=== PATIENT | male | born 1945 | race Caucasian/White ===

== ENCOUNTER 2017-12-28 13:35 | Observation (INO) | payer MEDICARE, OTHER, MEDICAID, SELFPAY ==
[2017-12-28] VITALS (53 sets, daily range): BP systolic 142–198; BP diastolic 71–104; PULSE 71–97; RESP 13–40; TEMP 37–37.3; O2SAT 90–97
[2017-12-28 14:10] LABS: Abs Immature Grans 0.01 k/cumm (0.0-0.09); Absolute Basophil Count 0.02 k/cumm (0.0-0.2); Absolute Eosinophil Count 0.43 k/cumm (0.0-0.7); Absolute Lymphocyte Count 1.16 k/cumm (1.2-3.4); Absolute Monocyte Count 0.78 k/cumm (0.11-0.7); Absolute Neutrophil Count 5.41 k/cumm (1.2-6.7); Basophils % 0.3; Eosinophils % 5.5; HCT 38.8 % (40.0-50.0); HGB 12.6 g/dL (13.5-17.5); Immature Grans % 0.1; Lymphocytes % 14.9; Mean Corp. HGB Concentration 32.5 g/dL (32.0-36.0); Mean Corpuscular Hemoglobin 30.8 pg (27.0-33.0); Mean Corpuscular Volume 94.9 fL (80-95); Mean Platelet Volume 8.7 fL (8.0-11.0); Neutrophils % 69.2; Platelet Count 296 x1000/uL (130-400); RBC 4.09 m/cumm (4.50-6.00); RBC Distribution Width 13.3 % (11.8-14.1); White Blood Cell Count 7.81 k/cumm (4.4-10.8)
[2017-12-28 14:32] LABS: ALT 26 U/L (12-78); AST 17 U/L (15-37); Albumin 2.6 g/dL (3.4-5.0); Alkaline Phosphatase 74 U/L (46-116); Anion Gap 8.3 mmol/L (3-11); BUN 13 mg/dL (7-18); Bilirubin, Direct 0.23 mg/dL (0.00-0.20); Bilirubin, Total 0.8 mg/dL (0.2-1.0); CO2 28.7 mmol/L (21.0-32.0); Calcium 8.8 mg/dL (8.5-10.1); Chloride 99 mmol/L (98-107); Glucose 91 mg/dL (70-100); Magnesium 1.9 mg/dL (1.8-2.4); NT-proBNP 287 pg/mL; Potassium 4.3 mmol/L (3.5-5.1); Sodium 136 mmol/L (136-145); Total Protein 6.7 g/dL (6.4-8.2)
[2017-12-28 14:34] LABS: Troponin I < 0.02 ng/mL (0.00-0.06)
--- NOTE | 2017-12-28 15:12 | W.ED.GENAD ---
Discharge Plan Disposition Patient Disposition: [facility] INPATIENT Condition: Serious Discharge Details Chief Complaint: SOB Clinical Impression: Loculated pleural effusion, Shortness of breath, Hypoxia Reason For Visit: RANDAL Primary Care Provider: Essence Prater V ED Provider: Alexsander Mejia Home Meds and New Rx's Prescriptions: No Action albuterol sulfate [ProAir HFA] 8.5 GM HFA aerosol inhaler 1 - 2 puff Inhalation Q6H PRN RF: 0 terazosin 1 MG capsule 10 mg PO HS RF: 0 albuterol sulfate [Proventil HFA] 1 PUFF HFA aerosol inhaler 6.7 gm Inhalation PRN PRNRF: 0 prednisone 10 mg Tablet RF: 0 clindamycin HCl 300 mg Capsule 300 mg PO TID RF: 0 Duoneb 3 ml Inhalation PRN PRNRF: 0 Medical Decision Making 15:15 --72-year-old male with history of COPD and atrial fibrillation, here with shortness of breath over the past 2 weeks, recent left-sided chest pain. On clindamycin. Consider ACS, ECG reviewed and interpreted by me: A. fib, 76 bpm, normal axis, flattening of T waves laterally V4 to V6, nondiagnostic. Plan to check troponin. Consider pulmonary embolism. Plan to CT chest. 17:40 --CT chest interpreted by radiology: Evaluation for pulmonary embolism is limited secondary to timing of the examination and quantum mottle. Examination is technically nondiagnostic as a contrast of the main pulmonary artery measures less than 200 Hounsfield units. No definite main pulmonary artery embolism is seen. There is volume loss on the left with leftward mediastinal shift. A left-sided effusion is identified with areas of lobulation suggestive of loculation. There are associated opacities most consistent with atelectasis collapse. Superimposed pathology or infection would be difficult to exclude. Me a small portion of the lung is aerated superiorly. Aneurysmal dilatation of the ascending thoracic aorta. Large hiatal hernia. Lymph node prominence paratracheal. Plan to repeat CT given insufficient initial study. Patient provides informed consent to repeat. 20:00 --repeat CT of the chest interpreted by radiology: Left lung atelectasis with semi-loculated left pleural effusion and left thoracic volume loss unchanged from prior exam. Thoracic aorta unremarkable. No definite evidence of central or large pulmonary emboli. Will consult surgery. 20:05 -- Spoke with Dr. Lang who recommends admission to hospitalist for IV abx, possible VATs procedure. Will give levaquin. Will admit to Dr. Ma. HPI General Mode of arrival: EMS. Date/Time Provider Initiated Documentation: 12/28/17 13:56. Limitations to Documentation: no limitations. Information obtained by: patient. HPI Narrative: 72-year-old male with multiple medical problems including history of atrial fibrillation, COPD, hypertension, presents with chief complaint of shortness of breath. Patient notes that symptoms have persisted over the past 2 weeks. Symptoms are moderate to severe. No modifiers. Patient notes he was seen by his primary care physician Dr. Dumont in on Wednesday and was started on prednisone and clindamycin. Symptoms have persisted. He also notes associated dry cough. He is also experienced some left-sided deep chest pain today. Related Data Home Medications Medication Instructions Recorded Confirmed albuterol sulfate [Proventil Hfa] 6.7 gm INHALATION PRN PRN 10/16/12 12/28/17 terazosin 10 mg PO HS 10/16/12 12/28/17 albuterol sulfate [Proair Hfa] 1 - 2 puff INHALATION Q6H PRN 01/01/14 inhaler Duoneb 3 ml INHALATION PRN PRN 12/28/17 clindamycin HCl 300 mg PO TID 12/28/17 12/28/17 prednisone 12/28/17 Allergies Allergy/AdvReac Type Severity Reaction Status Date / Time Penicillins Allergy Mild Skin Rash Unverified 12/28/17 13:53 aspirin Allergy Unverified 12/28/17 13:53 naproxen [From Naprosyn] Allergy Unverified 12/28/17 13:53 General Stated Complaint: SOB ELIZABETH: 2 Review of Systems Review of Systems All systems reviewed & are unremarkable except as noted in HPI and below Cardiovascular Reports chest pain, Denies syncope, Denies edema and Reports dyspnea Respiratory Reports cough and Reports dyspnea Neurologic Denies syncope Hematologic/Lymphatic Comments: hands and distal LE swelling mild PFSH Medical History COPD (chronic obstructive pulmonary disease) (Chronic) Social History Smoking/Tobacco Use Status: Former Tobacco Use Exam Const General: cooperative and well developed Orientation: alert and awake Limitations: mental status not altered HENTX Head: normal to inspection and normocephalic Mouth: moist mucous membranes Throat: posterior oropharynx normal, uvula midline, posterior oropharynx abnormal and no uvular edema Eyes General: appearance normal, both eyes and all related structures Conjunctivae: conjunctivae normal EOM: EOM intact bilaterally Neck Neck: trachea midline, supple and no lymphadenopathy noted Resp Effort & Inspection: no grunting, no pursed lip breathing, respiratory distress (tachypnea, seems winded with speaking), no tripod positioning, no use of accessory muscles and No prolonged expiratory phase Auscultation: clear to auscultation bilaterally Cardio Jugular venous pressure: no JVD Rate: regular rate Rhythm: regular rhythm Heart Sounds: S1 normal, S2 normal, no gallops, no murmurs and no rubs GI Palpation: soft and nontender Skin General skin exam: no rashes or lesions noted and dry skin Other: warm Neuro General: alert, awake and oriented x3 Extrem General: no calf tenderness Psych Appearance: grossly normal Affect: normal affect Course Vital Signs Temperature 37.0 C 12/28/17 13:29 Pulse 76 12/28/17 13:29 Respiratory Rate 35 H 12/28/17 13:29 Pulse Oximetry 94 L 12/28/17 13:29 Temperature 37.0 C 12/28/17 13:29 Temperature Source Skin 12/28/17 13:29 Pulse 76 12/28/17 13:29 Respiratory Rate 20 12/28/17 13:54 Respiratory Effort Short of Breath 12/28/17 13:54 Respiratory Depth Normal 12/28/17 13:54 Respiratory Pattern Normal 12/28/17 13:54 Pulse Oximetry 94 L 12/28/17 13:29 Oxygen Delivery Method Room Air 12/28/17 13:29 Oxygen Flow Rate 0 12/28/17 13:29 Pain Level 4 12/28/17 13:29 Lab/Test Results Lab/Test Results: Laboratory Tests Range/Units 12/28/17 12/28/17 12/28/17 13:50 13:50 13:50 WBC (4.4-10.8) k/cumm 7.81 RBC (4.50-6.00) m/cumm 4.09 L Hgb (13.5-17.5) g/dL 12.6 L Hct (40.0-50.0) % 38.8 L MCV (80-95) fL 94.9 MCH (27.0-33.0) pg 30.8 MCHC (32.0-36.0) g/dL 32.5 RDW (11.8-14.1) % 13.3 Plt Count (130-400) x1000/uL 296 MPV (8.0-11.0) fL 8.7 Immature Gran % 0.1 Neutrophils % 69.2 Lymphocytes % 14.9 Monocytes % 10.0 Eosinophils % 5.5 Basophils % 0.3 Absolute Neutrophils (1.2-6.7) k/cumm 5.41 Absolute Lymphocytes (1.2-3.4) k/cumm 1.16 L Absolute Monocytes (0.11-0.7) k/cumm 0.78 H Absolute Eosinophils (0.0-0.7) k/cumm 0.43 Absolute Basophils (0.0-0.2) k/cumm 0.02 APTT (21.0-31.4) sec 31.0 Sodium (136-145) mmol/L 136 Potassium (3.5-5.1) mmol/L 4.3 Chloride (98-107) mmol/L 99 Carbon Dioxide (21.0-32.0) mmol/L 28.7 Anion Gap (3-11) mmol/L 8.3 BUN (7-18) mg/dL 13 Creatinine (0.70-1.30) mg/dL 0.40 L Estimated GFR/1.73 m2 (mL/min/1.73m2) >= 60.00 Glucose (70-100) mg/dL 91 Calcium (8.5-10.1) mg/dL 8.8 Magnesium (1.8-2.4) mg/dL 1.9 Total Bilirubin (0.2-1.0) mg/dL 0.8 Conjugated Bilirubin (0.00-0.20) mg/dL 0.23 H AST (15-37) U/L 17 ALT (12-78) U/L 26 Alkaline Phosphatase (46-116) U/L 74 Troponin I (0.00-0.06) ng/mL < 0.02 NT-Pro-B Natriuret Pep ( - 299) pg/mL 287 Total Protein (6.4-8.2) g/dL 6.7 Albumin (3.4-5.0) g/dL 2.6 L
[2017-12-28] MEDS: Omnipaque 350 MG/ML 100 ML BTL IJ ×2 (16:20→18:01)
--- NOTE | 2017-12-28 16:21 | DI.CT_ITS ---
SYMPTOM/DIAGNOSIS: SOB, INADEQUATE INITIAL STUDY PE CHEST CT: CT angiography was performed with multi slice acquisition and multi planar and 3D reconstruction. The exam is limited by patient's body habitus and poor pulmonary artery opacification. No large, central pulmonary emboli are identified. The heart is enlarged. There is a loculated appearing left pleural effusion and adjacent atelectasis. There is no evidence of aortic dissection although there is motion at the aortic root. The right lung appears clear. There are mildly enlarged mediastinal lymph nodes which may be reactive. There is a large hiatal hernia. The liver, spleen, gallbladder, pancreas and adrenals as well as upper portions of the kidneys are unremarkable. IMPRESSION: Limited exam due to motion, patient body habitus and suboptimal opacification of the pulmonary arteries. No central pulmonary emboli are seen. There is a moderate to large, partially loculated left pleural effusion and significant atelectasis. There is no gross evidence of a mass. PE CHEST CT: CT angiography was performed with multi slice acquisition and multi planar and 3D reconstruction. Comparison is made with the exam performed earlier the same day. The pulmonary arteries are better opacified when compared with the previous exam however there is still some patient motion and quantum model related to the patient's body habitus. There are no large pulmonary emboli. Again noted is a moderate to large, partially loculated left pleural effusion and adjacent atelectasis as well as some midline shift towards the left. The heart is enlarged. There are mildly enlarged mediastinal lymph nodes. The right lung remains clear. There is no evidence of aortic dissection. A large hiatal hernia is again noted. IMPRESSION: No evidence of central pulmonary emboli. Loculated left pleural effusion and significant left basilar atelectasis.
--- NOTE | 2017-12-28 16:54 | DI.VRAD_ITS ---
EXAM: CT Angiography Chest With Intravenous Contrast EXAM DATE/TIME: 12/28/2017 2:53 PM CLINICAL HISTORY: 72 years old, male; Signs and symptoms; Shortness of breath; Patient HX: SOB TECHNIQUE: Axial computed tomographic angiography images of the chest with intravenous contrast using CT angiography protocol. All CT scans at this facility use at least one of these dose optimization techniques: automated exposure control; mA and/or kV adjustment per patient size (includes targeted exams where dose is matched to clinical indication); or iterative reconstruction. Coronal and sagittal reformatted images were created and reviewed. MIP reconstructed images were created and reviewed. CONTRAST: 100 ml of omni 350 administered intravenously. COMPARISON: CR ABD FLAT UPRIGHT PA CHEST 02/25/2012 1:54 PM FINDINGS: Pulmonary arteries: Evaluation for pulmonary embolism is limited secondary to timing of the examination and quantum mottle. The examination is technically nondiagnostic as the contrast in the main pulmonary artery measures less than 200 Hounsfield units. No definite main pulmonary artery embolism is seen. Aorta: Evaluation of the proximal aorta is limited secondary to motion. The aorta measures 4.0 cm, aneurysmal. Lungs: There is volume loss on the left with leftward mediastinal shift. A left-sided effusion is identified with areas of lobulation suggestive of loculation. There are associated opacities most consistent with atelectasis/collapse. Superimposed pathology or infection would be difficult to exclude. Only a small portion of lung is aerated superiorly. Pleural space: There is a small pericardial effusion. Heart: Coronary artery calcifications are seen. Mediastinum: There is a large hiatal hernia. Gas is noted in the esophagus which can be seen with reflux. Bones/joints: Scoliosis. Skeletal degenerative changes. Scattered gas is noted in the disc spaces of the spine. In the absence of concern for infection, this is most likely secondary to vacuum phenomenon. Soft tissues: Unremarkable. Lymph nodes: There is a prominent paratracheal lymph node on series 6 image 18 measuring 1.2 cm on short axis, enlarged. IMPRESSION: 1. Evaluation for pulmonary embolism is limited secondary to timing of the examination and quantum mottle. The examination is technically nondiagnostic as the contrast in the main pulmonary artery measures less than 200 Hounsfield units. No definite main pulmonary artery embolism is seen. 2. There is volume loss on the left with leftward mediastinal shift. A left-sided effusion is identified with areas of lobulation suggestive of loculation. There are associated opacities most consistent with atelectasis/collapse. Superimposed pathology or infection would be difficult to exclude. Only a small portion of lung is aerated superiorly. 3. Aneurysmal dilation of the ascending thoracic aorta. 4. Large hiatal hernia. 5. Lymph node prominence/enlargement as described. Other findings as above. Dictated and Authenticated by: Amanda Joaquin MD. Ordering:ASPEN VALLEJO MD
[2017-12-28] MEDS: LEVOFLOXACIN 750 MG/150 ML BAG 150 MG IVPB (20:20)
--- NOTE | 2017-12-28 20:50 | W.PM.HP.N ---
Date of service: 12/28/17 Time of Service: 20:50 Assessment and Plan (1) Pleural effusion: Current visit: Yes Status: Acute Clearly the patient's symptoms are secondary to this large pleural effusion etiology unclear, rule out infection, inflammatory, malignant as most likely in the differential. Patient has received a dose of Levaquin here in the emergency room and I will continue that for now but it is clear he will need both a diagnostic and therapeutic thoracentesis. Case has been discussed with surgeon and they will be seeing the patient in the morning. We will continue usual medications as is in the meantime. I reviewed advanced directives with the patient and he wishes to be full code History of Present Illness Chief Complaint: sob Narrative: Patient is a 72-year-old male with history of COPD who comes in with approximately 2 weeks of left-sided pleuritic chest pain, shortness of breath and a degree of productive cough. There is been no fever or chills. His local doctor started him on clindamycin approximately 5 days ago. This has not had no effect and he comes to the emergency room with progressive and persistent symptoms. In the emergency room evaluation of note for massive left sided, loculated pleural effusion. He was admitted for further evaluation and management. Past medical history: COPD, atrial fibrillation (note that he says he is not on any anticoagulation or aspirin), coronary artery disease, GERD, oral pharyngeal dysphasia. Allergies to penicillin and NSAIDs. Medications: As needed albuterol clindamycin 300 3 times daily terazosin 10 mg at bedtime. Physical exam: Blood pressure 190/90 pulse approximately 90 respirations 19 afebrile O2 sat 92-93% on room air. HEENT unremarkable. Neck is supple. Lungs show dullness throughout on the left and diminished breath sound along with egophony. Heart is somewhat distant but irregularly irregular. Abdomen is soft nontender. and rectal exams are deferred neurological patient is alert and oriented and moves all 4 extremities. Laboratory: White count is 7.8 hematocrit 38 platelets 296 sodium 136 potassium 4.3 chloride 99 bicarb 28 BUN 13 creatinine 0.[address] shows massive left-sided pleural effusion, loculated Review of Systems Review of Systems All systems reviewed & are unremarkable except as noted in HPI and below PFSH Medical History COPD (chronic obstructive pulmonary disease) (Chronic) Social History Smoking/Tobacco Use Status: Former Tobacco Use Meds Home Medications Medication Instructions Recorded Confirmed Type albuterol sulfate [Proventil Hfa] 6.7 gm INHALATION PRN PRN 10/16/12 12/28/17 History terazosin 10 mg PO HS 10/16/12 12/28/17 History albuterol sulfate [Proair Hfa] 1 - 2 puff INHALATION Q6H PRN 01/01/14 History inhaler Duoneb 3 ml INHALATION PRN PRN 12/28/17 History clindamycin HCl 300 mg PO TID 12/28/17 12/28/17 History prednisone 12/28/17 History Allergies Allergy/AdvReac Type Severity Reaction Status Date / Time Penicillins Allergy Mild Skin Rash Unverified 12/28/17 13:53 aspirin Allergy Unverified 12/28/17 13:53 naproxen [From Naprosyn] Allergy Unverified 12/28/17 13:53 Exam Narrative Exam Narrative: See history of present illness Results Labs : 12/28/17 13:50 12/28/17 13:50 Laboratory Results - last 24 hr 12/28/17 12/28/17 12/28/17 13:50 13:50 13:50 WBC 7.81 RBC 4.09 L Hgb 12.6 L Hct 38.8 L MCV 94.9 MCH 30.8 MCHC 32.5 RDW 13.3 Plt Count 296 MPV 8.7 Immature Gran % 0.1 Neutrophils % 69.2 Lymphocytes % 14.9 Monocytes % 10.0 Eosinophils % 5.5 Basophils % 0.3 Absolute Neutrophils 5.41 Absolute Lymphocytes 1.16 L Absolute Monocytes 0.78 H Absolute Eosinophils 0.43 Absolute Basophils 0.02 APTT 31.0 Sodium 136 Potassium 4.3 Chloride 99 Carbon Dioxide 28.7 Anion Gap 8.3 BUN 13 Creatinine 0.40 L Estimated GFR/1.73 m2 >= 60.00 Glucose 91 Calcium 8.8 Magnesium 1.9 Total Bilirubin 0.8 Conjugated Bilirubin 0.23 H AST 17 ALT 26 Alkaline Phosphatase 74 Troponin I < 0.02 NT-Pro-B Natriuret Pep 287 Total Protein 6.7 Albumin 2.6 L Last Vital Signs Temp 37.0 C 12/28/17 13:29 Pulse 81 12/28/17 19:46 Resp 19 12/28/17 19:50 BP 198/89 H 12/28/17 19:46 Pulse Ox 92 L 12/28/17 19:50
[2017-12-28] MEDS: Zolpidem 5 MG TAB PO (22:18)
[2017-12-28 22:21] LABS: Bilirubin Negative (Negative); Blood Negative (Negative); Clarity Clear; Glucose Negative (Negative); Ketones >=160 mg/dL (Negative); Leukocyte Esterase Negative (Negative); Nitrite Negative (Negative); Urobilinogen 0.2 EU/dL (Up TO 0.2)
[2017-12-29] VITALS (29 sets, daily range): BP systolic 111–178; BP diastolic 74–145; PULSE 78–118; RESP 18–34; TEMP 36.9–37.3; O2SAT 90–96
[2017-12-29 08:14] LABS: Abs Immature Grans 0.02 k/cumm (0.0-0.09); Absolute Basophil Count 0.02 k/cumm (0.0-0.2); Absolute Eosinophil Count 0.16 k/cumm (0.0-0.7); Absolute Lymphocyte Count 0.88 k/cumm (1.2-3.4); Absolute Monocyte Count 0.92 k/cumm (0.11-0.7); Basophils % 0.2; Eosinophils % 1.7; HCT 38.8 % (40.0-50.0); HGB 12.8 g/dL (13.5-17.5); Immature Grans % 0.2; Lymphocytes % 9.3; Mean Corpuscular Hemoglobin 30.9 pg (27.0-33.0); Mean Corpuscular Volume 93.7 fL (80-95); Mean Platelet Volume 8.6 fL (8.0-11.0); Monocytes % 9.7; Neutrophils % 78.9; Platelet Count 300 x1000/uL (130-400); RBC 4.14 m/cumm (4.50-6.00); RBC Distribution Width 13.2 % (11.8-14.1)
[2017-12-29 08:21] LABS: Magnesium 1.9 mg/dL (1.8-2.4)
[2017-12-29 08:24] LABS: Anion Gap 9.5 mmol/L (3-11); BUN 11 mg/dL (7-18); C-Reactive Protein 16.67 mg/dL (0.0-0.3); CO2 26.5 mmol/L (21.0-32.0); CREATININE 0.34 mg/dL (0.70-1.30); Calcium 8.7 mg/dL (8.5-10.1); Chloride 99 mmol/L (98-107); Glucose 111 mg/dL (70-100); LDH 123 U/L (85-227); Potassium 4.2 mmol/L (3.5-5.1); Sodium 135 mmol/L (136-145)
[2017-12-29 08:29] LABS: INR 1.3 (1.0-3.5); Prothrombin Time 12.2 sec (9.3-10.8)
[2017-12-29 08:34] LABS: ALT 21 U/L (12-78); AST 15 U/L (15-37); Albumin 2.4 g/dL (3.4-5.0); Alkaline Phosphatase 72 U/L (46-116); Bilirubin, Direct 0.28 mg/dL (0.00-0.20); Total Protein 6.5 g/dL (6.4-8.2)
[2017-12-29] MEDS: Acetaminophen 325 MG TAB 650 MG PO (08:45)
--- NOTE | 2017-12-29 10:24 | PHARADMIT ---
Admission Pharmacy Clinical Review PLEURAL EFFUSION Code Status Full Code Current Weight Wgt- 142.9 kg Renally Cleared and Narrow Therapeutic Index Meds CrCl~ 84 mL/min Meds-OK QTc Value / Action Taken NA BP Control, Fever BP- 165/84 Tmax- 37.3C Electrolytes reviewed Na- 135 K+4.2 Mag-1.9 DVT Prophylaxis None Opiate Usage / Scheduled Bowel Regimen Ordered No No Plt/SCr for Heparin / Enoxaparin Plts-300 SCr-0.34 INR for Warfarin INR-1.3 H/H stable, WBC/Bands H&H- 12.8/38.8 WBC- 9.50 Antibiotic appropriateness Levaquin Cultures and Sensitivities nione Surgical ABX d/c within 24 hr na DM control / Insulin Dosing BG- 111 Heart Failure (Check EF%) (ALTAF's, B-Block, Diuretics) Terazosin IV to PO Switch no Home Meds Reviewed Yes Home Meds Not Ordered Albuterol HFA, Cleocin, Prednisone Comments
--- NOTE | 2017-12-29 11:06 | PDOC.CMIN ---
Care Management Initial Assess REASON FOR HOSPITALIZATION:: Pleural Effusion PAST MEDICAL HISTORY/PAST SURGICAL HISTORY:: COPD, atrial fibrillation (note that he says he is not on any anticoagulation or aspirin), coronary artery disease, GERD, oral pharyngeal dysphasia. Allergies to penicillin and NSAIDs. PREVIOUS FUNCTIONAL STATUS/SOCIAL/FAMILY SUPPORTS:: Jonathan resides in [facility] with his and primary caregiver; Veronique. He reports being unable to leave the home without EMS transport which he utilizes for dentist and medical appointments. The couple has two adult children; a son and daughter. CURRENT FUNCTIONAL STATUS:: Jonathan is lying in bed when CM meets with him. He shares concerns around needing to see a body rolling machine tender, but is pleasant in interaction and forthcoming with information. ADVANCE DIRECTIVES:: None on file at [facility] Has patient been provided with information about the portal?: No Did the patient sign up for the portal?: No INSURANCE COVERAGE / FINANCIAL ISSUES:: Medicare CURRENT HOME/COMMUNITY SERVICES/EQUIPMENT:: [employer], [employer], LTC Medicaid: [facility], through [employer]: Viri Abreu. PRIMARY CARE PHYSICIAN:: Essence Prater POTENTIAL DISCHARGE NEEDS:: Possible tranfer coordination. PATIENT/FAMILY EDUCATION NEEDS:: Review of instructions, limitations to care, discharge recommendations. ANTICIPATED BARRIERS TO DISCHARGE:: Bed availability at tertiary facility. TRANSPORTATION:: EMS PLAN:: Jonathan will transfer to tertiary facility due to needing VAT per MD. He will transport via EMS.
--- NOTE | 2017-12-29 11:25 | INITIAL_ITS ---
Care Management Initial Assess REASON FOR HOSPITALIZATION:: Pleural Effusion PAST MEDICAL HISTORY/PAST SURGICAL HISTORY:: COPD, atrial fibrillation (note that he says he is not on any anticoagulation or aspirin), coronary artery disease, GERD, oral pharyngeal dysphasia. Allergies to penicillin and NSAIDs. PREVIOUS FUNCTIONAL STATUS/SOCIAL/FAMILY SUPPORTS:: Jonathan resides in [facility] with his and primary caregiver; Veronique. He reports being unable to leave the home without EMS transport which he utilizes for dentist and medical appointments. The couple has two adult children; a son and daughter. CURRENT FUNCTIONAL STATUS:: Jonathan is lying in bed when CM meets with him. He shares concerns around needing to see a nps, but is pleasant in interaction and forthcoming with information. ADVANCE DIRECTIVES:: None on file at [facility] Has patient been provided with information about the portal?: No Did the patient sign up for the portal?: No INSURANCE COVERAGE / FINANCIAL ISSUES:: Medicare CURRENT HOME/COMMUNITY SERVICES/EQUIPMENT:: [employer], [employer], LTC Medicaid: MERGED WITH [facility] , through [employer]: Viri Abreu. PRIMARY CARE PHYSICIAN:: Essence Prater POTENTIAL DISCHARGE NEEDS:: Possible tranfer coordination. PATIENT/FAMILY EDUCATION NEEDS:: Review of instructions, limitations to care, discharge recommendations. ANTICIPATED BARRIERS TO DISCHARGE:: Bed availability at tertiary facility. TRANSPORTATION:: EMS PLAN:: Jonathan will transfer to tertiary facility due to needing VAT per MD. He will transport via EMS.
--- NOTE | 2017-12-29 13:48 | NUR.NOTE ---
Pt transferred to ICU at 1330 for higher level of care until transfer for VATS procedure. Nursing Note:
--- NOTE | 2017-12-29 15:41 | W.PM.DS.N ---
Date of service: 12/29/17 Time of Service: 15:42 DS: Diagnosis Discharge Diagnosis (1) Pleural effusion: Status: Acute Asessment and Plan: Large, left, loculated, etiology unknown (2) Mediastinal shift: Status: Acute (3) COPD (chronic obstructive pulmonary disease): Status: Chronic (4) Paroxysmal A-fib: Status: Chronic Asessment and Plan: not on anticoagulation (5) Pleuritic chest pain: Status: Acute (6) HOWARD (obstructive sleep apnea): Status: Chronic (7) Obesity: Status: Chronic (8) Oropharyngeal dysphagia: Status: Chronic (9) GERD (gastroesophageal reflux disease): Status: Chronic (10) Hiatal hernia: Status: Chronic Discharge Plan Disposition Patient Disposition: HOSPITAL, NON-SPECIFIC Condition: Serious Discharge Details Reason For Visit: PLEURAL EFFUSION Admit Date/Time: 12/28/17 21:03 Admit Provider: Finn Ma Attending Provider: Finn Ma Primary Care Provider: Essence Prater V Hospital Course Hospital Course: Mr Busch is a 73 year old male with PMHx of paroxysmal Atrial fibrillation (not on anticoagulation), COPD (not oxygen dependent), GERD, Obesity who presented to [facility] ED on 12/28/17 complaining of shortness of breath and pleuritic chest pain. His workup (CTA of the chest) revealed that he had a moderate to large partially loculated left pleural effusion, significant atelectasis, as well as a mediastinal shift toward the left. There was also a large hiatal hernia noted. General surgery was consulted and feels that patient requires a thoracic surgery approach to best solve this patient's problem - specifically, VATS, which is unavailable at [facility]. There are no beds available at this time at either [facility] or [facility] We reached out to [facility] in [place], [place], where Dr Jimenez has agreed to accept the patient with thoracic surgery consulting, and Dr Berger of thoracic surgery is aware of the patient. The patient is in agreement with transfer. He is requiring 2 L of oxygen, his heart rate has been mostly controlled. He is hemodynamically stable for the transfer at this time. Home Meds and New Rx's Prescriptions: New acetaminophen [Tylenol] 325 mg Tablet 650 mg PO Q4H PRN PRNQty: 0 RF: 0 levofloxacin in D5W 500 mg/100 mL piggyback 500 mg IV Q24H Qty: 100 RF: 0 Continue albuterol sulfate [ProAir HFA] 8.5 GM HFA aerosol inhaler 1 - 2 puff Inhalation Q6H PRN RF: 0 terazosin 1 MG capsule 10 mg PO HS RF: 0 albuterol sulfate [Proventil HFA] 1 PUFF HFA aerosol inhaler 6.7 gm Inhalation PRN PRNRF: 0 prednisone 10 mg Tablet RF: 0 Duoneb 3 ml Inhalation PRN PRNRF: 0 Discontinued clindamycin HCl 300 mg Capsule 300 mg PO TID RF: 0 Discharge Instructions Instructions: Pleural Effusion (DC), Video Assisted Thoracoscopic Surgery (DC) Additional Instructions: Return to the hospital with any fever, bleeding chest pain, shortness of breath. Referrals: Essence Prater MD [Primary Care Provider] - Activity:: OOB to chair Equipment/Supplies:: 2L/min for ambulance ride Diet:: Low Sodium Discharge Orders Discharge Orders: Discharge Order (Routine); Ordered 12/29/17 Ordered By: Elaine Sykes Exam Narrative Exam Narrative: General: Very pleasant Obese male, mildly tachypneic Neurological: A&Ox3, no focal deficits Psychiatric: appropriate speech pattern/content Skin: intact HEENT: EOMI, MMM, no JVD Cardiovascular: Irregularly irregular rhythm, no murmurs Lungs: Nearly no breath sounds auscultated on the L. Diminished aeration on R. Gastrointestinal: Obese abdomen, nontender, soft. Extremities: No edema/clubbing/cyanosis BLE's. DS: Data Vitals/I&O Vitals and I&O: Vital Signs Temperature 37.3 C 12/29/17 13:52 Temperature Source Temporal Artery Scan 12/29/17 13:52 Pulse 95 H 12/29/17 14:03 Pulse Rhythm Irregular 12/29/17 09:43 Pulse 87 12/29/17 14:03 Respiratory Rate 24 12/29/17 14:03 Respiratory Effort Labored 12/29/17 13:52 Respiratory Depth Shallow 12/29/17 09:43 Respiratory Pattern Tachypnea 12/29/17 13:52 Blood Pressure 159/97 H 12/29/17 14:03 Blood Pressure Mean 113 12/29/17 14:03 Pulse Oximetry 95 12/29/17 14:03 Oxygen Delivery Method Nasal Cannula 12/29/17 13:52 Oxygen Flow Rate 2 12/29/17 13:52 Fraction of Inspired Oxygen (FIO2) 0 12/29/17 07:15 Pain Level 6 12/29/17 13:52 Intake & Output 12/28/17 12/29/17 12/29/17 23:59 11:59 23:59 Intake Total 150 / 150 670 / 670 Output Total 300 / 300 Balance 150 / 150 370 / 370 Weight 142.882 kg 149.3 kg Intake: IV 150 / 150 Oral 670 / 670 Output: Urine 300 / 300 Other: Urine Color Yellow Urine Appearance Clear Clear Urine Odor Strong Voiding Methods Urinal Completed studies during hospitalization [Text1]: CTA chest 12/28/17: Comparison is made with the exam performed earlier the same day. The pulmonary arteries are better opacified when compared with the previous exam however there is still some patient motion and quantum model related to the patient's body habitus. There are no large pulmonary emboli. Again noted is a moderate to large, partially loculated left pleural effusion and adjacent atelectasis as well as some midline shift towards the left. The heart is enlarged. There are mildly enlarged mediastinal lymph nodes. The right lung remains clear. There is no evidence of aortic dissection. A large hiatal hernia is again noted. IMPRESSION: No evidence of central pulmonary emboli. Loculated left pleural effusion and significant left basilar atelectasis. Labs on day of discharge: Labs from last 24 hours 12/29/17 12/29/17 12/29/17 08:00 08:00 08:00 WBC 9.50 RBC 4.14 L Hgb 12.8 L Hct 38.8 L MCV 93.7 MCH 30.9 MCHC 33.0 RDW 13.2 Plt Count 300 MPV 8.6 Immature Gran % 0.2 Neutrophils % 78.9 Lymphocytes % 9.3 Monocytes % 9.7 Eosinophils % 1.7 Basophils % 0.2 Absolute Neutrophils 7.50 H Absolute Lymphocytes 0.88 L Absolute Monocytes 0.92 H Absolute Eosinophils 0.16 Absolute Basophils 0.02 PT 12.2 H INR 1.3 Sodium Potassium Chloride Carbon Dioxide Anion Gap BUN Creatinine Estimated GFR/1.73 m2 Glucose Calcium Magnesium Total Bilirubin 1.0 Conjugated Bilirubin 0.28 H AST 15 ALT 21 Alkaline Phosphatase 72 Lactate Dehydrogenase C-Reactive Protein Total Protein 6.5 Albumin 2.4 L Urine Color Urine Clarity Urine pH Ur Specific [place] Urine Protein Urine Ketones Urine Blood Urine Nitrite Urine Bilirubin Urine Urobilinogen Ur Leukocyte Esterase Urine Glucose 12/29/17 12/29/17 12/28/17 08:00 07:45 22:05 WBC RBC Hgb Hct MCV MCH MCHC RDW Plt Count MPV Immature Gran % Neutrophils % Lymphocytes % Monocytes % Eosinophils % Basophils % Absolute Neutrophils Absolute Lymphocytes Absolute Monocytes Absolute Eosinophils Absolute Basophils PT INR Sodium 135 L Potassium 4.2 Chloride 99 Carbon Dioxide 26.5 Anion Gap 9.5 BUN 11 Creatinine 0.34 L Estimated GFR/1.73 m2 >= 60.00 Glucose 111 H Calcium 8.7 Magnesium 1.9 Total Bilirubin Conjugated Bilirubin AST ALT Alkaline Phosphatase Lactate Dehydrogenase 123 C-Reactive Protein 16.67 H Total Protein Albumin Urine Color Yellow Urine Clarity Clear Urine pH 6.0 Ur Specific [place] 1.010 Urine Protein Negative Urine Ketones >=160 Urine Blood Negative Urine Nitrite Negative Urine Bilirubin Negative Urine Urobilinogen 0.2 Ur Leukocyte Esterase Negative Urine Glucose Negative 12/28/17 12/28/17 22:02 14:31 WBC RBC Hgb Hct MCV MCH MCHC RDW Plt Count MPV Immature Gran % Neutrophils % Lymphocytes % Monocytes % Eosinophils % Basophils % Absolute Neutrophils Absolute Lymphocytes Absolute Monocytes Absolute Eosinophils Absolute Basophils PT INR Sodium Potassium Chloride Carbon Dioxide Anion Gap BUN Creatinine Estimated GFR/1.73 m2 Glucose Calcium Magnesium Total Bilirubin Conjugated Bilirubin AST ALT Alkaline Phosphatase Lactate Dehydrogenase C-Reactive Protein Total Protein Albumin Urine Color Pending Cancelled Urine Clarity Pending Cancelled Urine pH Pending Cancelled Ur Specific [place] Pending Cancelled Urine Protein Pending Cancelled Urine Ketones Pending Cancelled Urine Blood Pending Cancelled Urine Nitrite Pending Cancelled Urine Bilirubin Pending Cancelled Urine Urobilinogen Pending Cancelled Ur Leukocyte Esterase Pending Cancelled Urine Glucose Pending Cancelled
--- NOTE | 2017-12-29 15:47 | DSE_ITS ---
Date of service: 12/29/17 Time of Service: 15:42 DS: Diagnosis Discharge Diagnosis (1) Pleural effusion: Status: Acute Asessment and Plan: Large, left, loculated, etiology unknown (2) Mediastinal shift: Status: Acute (3) COPD (chronic obstructive pulmonary disease): Status: Chronic (4) Paroxysmal A-fib: Status: Chronic Asessment and Plan: not on anticoagulation (5) Pleuritic chest pain: Status: Acute (6) HOWARD (obstructive sleep apnea): Status: Chronic (7) Obesity: Status: Chronic (8) Oropharyngeal dysphagia: Status: Chronic (9) GERD (gastroesophageal reflux disease): Status: Chronic (10) Hiatal hernia: Status: Chronic Discharge Plan Disposition Patient Disposition: HOSPITAL, NON-SPECIFIC Condition: Serious Discharge Details Reason For Visit: PLEURAL EFFUSION Admit Date/Time: 12/28/17 21:03 Admit Provider: Finn Ma Attending Provider: Finn Ma Primary Care Provider: Essence Prater V Hospital Course Hospital Course: Mr Busch is a 73 year old male with PMHx of paroxysmal Atrial fibrillation ( not on anticoagulation), COPD (not oxygen dependent), GERD, Obesity who presented to [facility] ED on 12/28/17 complaining of shortness of breath and pleuritic chest pain. His workup (CTA of the chest) revealed that he had a moderate to large partially loculated left pleural effusion, significant atelectasis, as well as a mediastinal shift toward the left. There was also a large hiatal hernia noted. General surgery was consulted and feels that patient requires a thoracic surgery approach to best solve this patient's problem - specifically, VATS, which is unavailable at [facility]. There are no beds available at this time at either [facility] or [facility]. We reached out to [facility] in [place], [place], where Dr Jimenez has agreed to accept the patient with thoracic surgery consulting, and Dr Berger of thoracic surgery is aware of the patient. The patient is in agreement with transfer. He is requiring 2 L of oxygen, his heart rate has been mostly controlled. He is hemodynamically stable for the transfer at this time. Home Meds and New Rx's Prescriptions: New acetaminophen [Tylenol] 325 mg Tablet 650 mg PO Q4H PRN PRNQty: 0 RF: 0 levofloxacin in D5W 500 mg/100 mL piggyback 500 mg IV Q24H Qty: 100 RF: 0 Continue albuterol sulfate [ProAir HFA] 8.5 GM HFA aerosol inhaler 1 - 2 puff Inhalation Q6H PRN RF: 0 terazosin 1 MG capsule 10 mg PO HS RF: 0 albuterol sulfate [Proventil HFA] 1 PUFF HFA aerosol inhaler 6.7 gm Inhalation PRN PRNRF: 0 prednisone 10 mg Tablet RF: 0 Duoneb 3 ml Inhalation PRN PRNRF: 0 Discontinued clindamycin HCl 300 mg Capsule 300 mg PO TID RF: 0 Discharge Instructions Instructions: Pleural Effusion (DC), Video Assisted Thoracoscopic Surgery (DC) Additional Instructions: Return to the hospital with any fever, bleeding chest pain, shortness of breath. Referrals: Essence Prater MD [Primary Care Provider] - Activity:: OOB to chair Equipment/Supplies:: 2L/min for ambulance ride Diet:: Low Sodium Discharge Orders Discharge Orders: Discharge Order (Routine); Ordered 12/29/17 Ordered By: Elaine Sykes Exam Narrative Exam Narrative: General: Very pleasant Obese male, mildly tachypneic Neurological: A&Ox3, no focal deficits Psychiatric: appropriate speech pattern/content Skin: intact HEENT: EOMI, MMM, no JVD Cardiovascular: Irregularly irregular rhythm, no murmurs Lungs: Nearly no breath sounds auscultated on the L. Diminished aeration on R. Gastrointestinal: Obese abdomen, nontender, soft. Extremities: No edema/clubbing/cyanosis BLE's. DS: Data Vitals/I&O Vitals and I&O: Vital Signs Temperature 37.3 C 12/29/17 13:52 Temperature Source Temporal Artery Scan 12/29/17 13:52 Pulse 95 H 12/29/17 14:03 Pulse Rhythm Irregular 12/29/17 09:43 Pulse 87 12/29/17 14:03 Respiratory Rate 24 12/29/17 14:03 Respiratory Effort Labored 12/29/17 13:52 Respiratory Depth Shallow 12/29/17 09:43 Respiratory Pattern Tachypnea 12/29/17 13:52 Blood Pressure 159/97 H 12/29/17 14:03 Blood Pressure Mean 113 12/29/17 14:03 Pulse Oximetry 95 12/29/17 14:03 Oxygen Delivery Method Nasal Cannula 12/29/17 13:52 Oxygen Flow Rate 2 12/29/17 13:52 Fraction of Inspired Oxygen (FIO2) 0 12/29/17 07:15 Pain Level 6 12/29/17 13:52 Intake & Output 12/28/17 12/29/17 12/29/17 23:59 11:59 23:59 Intake Total 150 / 150 670 / 670 Output Total 300 / 300 Balance 150 / 150 370 / 370 Weight 142.882 kg 149.3 kg Intake: IV 150 / 150 Oral 670 / 670 Output: Urine 300 / 300 Other: Urine Color Yellow Urine Appearance Clear Clear Urine Odor Strong Voiding Methods Urinal Completed studies during hospitalization [Text1]: CTA chest 12/28/17: Comparison is made with the exam performed earlier the same day. The pulmonary arteries are better opacified when compared with the previous exam however there is still some patient motion and quantum model related to the patient's body habitus. There are no large pulmonary emboli. Again noted is a moderate to large, partially loculated left pleural effusion and adjacent atelectasis as well as some midline shift towards the left. The heart is enlarged. There are mildly enlarged mediastinal lymph nodes. The right lung remains clear. There is no evidence of aortic dissection. A large hiatal hernia is again noted. IMPRESSION: No evidence of central pulmonary emboli. Loculated left pleural effusion and significant left basilar atelectasis. Labs on day of discharge: Labs from last 24 hours 12/29/17 12/29/17 12/29/17 08:00 08:00 08:00 WBC 9.50 RBC 4.14 L Hgb 12.8 L Hct 38.8 L MCV 93.7 MCH 30.9 MCHC 33.0 RDW 13.2 Plt Count 300 MPV 8.6 Immature Gran % 0.2 Neutrophils % 78.9 Lymphocytes % 9.3 Monocytes % 9.7 Eosinophils % 1.7 Basophils % 0.2 Absolute Neutrophils 7.50 H Absolute Lymphocytes 0.88 L Absolute Monocytes 0.92 H Absolute Eosinophils 0.16 Absolute Basophils 0.02 PT 12.2 H INR 1.3 Sodium Potassium Chloride Carbon Dioxide Anion Gap BUN Creatinine Estimated GFR/1.73 m2 Glucose Calcium Magnesium Total Bilirubin 1.0 Conjugated Bilirubin 0.28 H AST 15 ALT 21 Alkaline Phosphatase 72 Lactate Dehydrogenase C-Reactive Protein Total Protein 6.5 Albumin 2.4 L Urine Color Urine Clarity Urine pH Ur Specific [place] Urine Protein Urine Ketones Urine Blood Urine Nitrite Urine Bilirubin Urine Urobilinogen Ur Leukocyte Esterase Urine Glucose 12/29/17 12/29/17 12/28/17 08:00 07:45 22:05 WBC RBC Hgb Hct MCV MCH MCHC RDW Plt Count MPV Immature Gran % Neutrophils % Lymphocytes % Monocytes % Eosinophils % Basophils % Absolute Neutrophils Absolute Lymphocytes Absolute Monocytes Absolute Eosinophils Absolute Basophils PT INR Sodium 135 L Potassium 4.2 Chloride 99 Carbon Dioxide 26.5 Anion Gap 9.5 BUN 11 Creatinine 0.34 L Estimated GFR/1.73 m2 >= 60.00 Glucose 111 H Calcium 8.7 Magnesium 1.9 Total Bilirubin Conjugated Bilirubin AST ALT Alkaline Phosphatase Lactate Dehydrogenase 123 C-Reactive Protein 16.67 H Total Protein Albumin Urine Color Yellow Urine Clarity Clear Urine pH 6.0 Ur Specific [place] 1.010 Urine Protein Negative Urine Ketones >=160 Urine Blood Negative Urine Nitrite Negative Urine Bilirubin Negative Urine Urobilinogen 0.2 Ur Leukocyte Esterase Negative Urine Glucose Negative 12/28/17 12/28/17 22:02 14:31 WBC RBC Hgb Hct MCV MCH MCHC RDW Plt Count MPV Immature Gran % Neutrophils % Lymphocytes % Monocytes % Eosinophils % Basophils % Absolute Neutrophils Absolute Lymphocytes Absolute Monocytes Absolute Eosinophils Absolute Basophils PT INR Sodium Potassium Chloride Carbon Dioxide Anion Gap BUN Creatinine Estimated GFR/1.73 m2 Glucose Calcium Magnesium Total Bilirubin Conjugated Bilirubin AST ALT Alkaline Phosphatase Lactate Dehydrogenase C-Reactive Protein Total Protein Albumin Urine Color Pending Cancelled Urine Clarity Pending Cancelled Urine pH Pending Cancelled Ur Specific [place] Pending Cancelled Urine Protein Pending Cancelled Urine Ketones Pending Cancelled Urine Blood Pending Cancelled Urine Nitrite Pending Cancelled Urine Bilirubin Pending Cancelled Urine Urobilinogen Pending Cancelled Ur Leukocyte Esterase Pending Cancelled Urine Glucose Pending Cancelled
[2017-12-29] MEDS: Normal Saline 1,000 ML 75 ML IV (16:01)
--- NOTE | 2017-12-29 18:18 | NUR.NOTE ---
meds stored in pharmacy given to daughter at dcNursing Note:
== END 2017-12-29 17:05 | disposition short-term general hospital (02) ==
LOC: ER 20:13 → MS 12-29 09:54 → ICU 12-29 13:48 → MS 01-03 15:00
PROVIDERS: Admitting Provider General Practice; Emergency Provider Student in an Organized Health Care Education/Training Program; PCP Family Medicine; Visit Provider Internal Medicine
DX: J90 Pleural effusion, not elsewhere classified (principal); J98.11 Atelectasis; R93.89 Abnormal findings on diagnostic imaging of other specified body structures; J44.9 Chronic obstructive pulmonary disease, unspecified; I48.0 Paroxysmal atrial fibrillation; R07.89 Other chest pain; E66.9 Obesity, unspecified; R13.12 Dysphagia, oropharyngeal phase; K21.9 Gastro-esophageal reflux disease without esophagitis; K44.9 Diaphragmatic hernia without obstruction or gangrene; G47.33 Obstructive sleep apnea (adult) (pediatric)
CPT/HCPCS: 36415; 71275; 80048; 80053; 80076; 93005; 96365; 99222; 99285; 99291; 81003; 83615; 83735; 83880; 84484; 85025; 85610; 85730; 86140; 93010; 99219; G0378; J1956; J3490

== ENCOUNTER 2018-01-21 00:18 | Outpatient (CLI) | payer MEDICARE, OTHER, MEDICAID, SELFPAY ==
--- NOTE | 2018-01-21 14:14 | DI.CT_ITS ---
SYMPTOMS/DIAGNOSIS: F/U PLEURAL EFFUSION, J90 CT SCAN OF THE CHEST: CT scan of the chest was performed according following the uneventful administration of intravenous contrast material. The patient received 70 cc's of Omnipaque [address] scan of the chest was compared with examination from 01/08/18 from [facility], [place], [place]. The thoracic aorta is of normal caliber. The heart size is mildly enlarged. No significant pericardial effusion is seen. There are again seen multiple lymph nodes in the mediastinum which appear stable. There has been some improved aeration of the left lower lobe however there is significant consolidation in the lung base. There is a small dependent infiltrate in the left upper lobe. The right lung remains clear. No pneumothorax is identified. The tracheobronchial tree is unremarkable. The left chest tube has been removed. There is a left pleural effusion present. There does appear to be an encapsulated fluid collection again seen in the left lung base medially. It measures 4.4 cm transverse x 3.9 cm AP x approximately 7 cm craniocaudally. Using similar measuring techniques this area measured 6.2 cm transverse x 4.4 cm AP x 10.9 cm. No new focal fluid collections are appreciated. The upper abdominal images show no acute abnormality. There is a large hiatal hernia. IMPRESSION: 1. Improved aeration of the left lung base with persistent smaller area of consolidation involving the left lower lobe. 2. Interval decrease in size of encapsulated fluid collection in the left hemithorax medially. This raises the question of an empyema. 3. Small left pleural effusion. The findings were discussed with Dr. Prater on the date of the examination.
== END 2018-01-21 00:38 ==
PROVIDERS: PCP Family Medicine; Visit Provider Family Medicine
DX: J90 Pleural effusion, not elsewhere classified (principal); I51.7 Cardiomegaly; R59.0 Localized enlarged lymph nodes; R91.8 Other nonspecific abnormal finding of lung field
CPT/HCPCS: 71260

== ENCOUNTER 2018-02-11 00:35 | Outpatient (CLI) | payer MEDICARE, OTHER, MEDICAID, SELFPAY ==
[2018-02-11 14:27] LABS: HCT 38.3 % (40.0-50.0); HGB 12.2 g/dL (13.5-17.5); Mean Corp. HGB Concentration 31.9 g/dL (32.0-36.0); Mean Corpuscular Hemoglobin 29.8 pg (27.0-33.0); Mean Corpuscular Volume 93.6 fL (80-95); Mean Platelet Volume 8.4 fL (8.0-11.0); Platelet Count 178 x1000/uL (130-400); RBC 4.09 m/cumm (4.50-6.00); RBC Distribution Width 15.2 % (11.8-14.1); White Blood Cell Count 5.14 k/cumm (4.4-10.8)
[2018-02-11 14:35] LABS: Anion Gap 9.1 mmol/L (3-11); BUN 9 mg/dL (7-18); CO2 28.9 mmol/L (21.0-32.0); CREATININE 0.46 mg/dL (0.70-1.30); Calcium 8.5 mg/dL (8.5-10.1); Chloride 104 mmol/L (98-107); Glucose 94 mg/dL (70-100); Potassium 3.9 mmol/L (3.5-5.1); Sodium 142 mmol/L (136-145)
[2018-02-11 15:00] LABS: ALT 25 U/L (12-78); AST 19 U/L (15-37); Albumin 2.9 g/dL (3.4-5.0); Alkaline Phosphatase 81 U/L (46-116); Bilirubin, Total 0.9 mg/dL (0.2-1.0); Total Protein 6.6 g/dL (6.4-8.2)
--- NOTE | 2018-02-11 15:16 | DI.CT_ITS ---
SYMPTOM/DIAGNOSIS: PLEURAL EFFUSION, J90, EMPYEMA, J86.9, F/U CHEST CT: Comparison is made with 01/21/18. Images were performed from the clavicles through the level of the adrenals after IV contrast. The exam is again limited by patient body habitus. There is a small residual left pleural effusion. The previously noted encapsulated collection at the left medial lung base is no longer seen. Atelectatic lung remains present at the left lung base. Again noted is a large hiatal hernia containing the majority of the stomach. A large amount of fat also herniates through the hiatal defect. The pulmonary arteries are not well opacified on the current exam however there are visible filling defect in right lower lobe pulmonary arteries. The findings are partially occluding and there is some dilatation of the pulmonary arteries indicating some degree of chronicity. IMPRESSION: 1. Interval resolution of encapsulated peripherally enhancing area in the medial left lung base. Residual small left pleural effusion and adjacent compressive atelectasis. The compression appears to be in part secondary to a large hiatal hernia containing both fat and the majority of the stomach. 2. Subacute to chronic appearing emboli of the right lower lobe pulmonary arteries.
[2018-02-11] MEDS: Omnipaque 350 MG/ML 100 ML BTL IJ (15:17)
== END 2018-02-11 00:55 ==
PROVIDERS: PCP Family Medicine; Visit Provider Family Medicine
DX: J90 Pleural effusion, not elsewhere classified (principal); J86.9 Pyothorax without fistula; J98.11 Atelectasis; I27.82 Chronic pulmonary embolism; I48.91 Unspecified atrial fibrillation; G71.09 Other specified muscular dystrophies; I10 Essential (primary) hypertension; D64.9 Anemia, unspecified
CPT/HCPCS: 36415; 80048; 80053; 85027; 71260; J3490

== ENCOUNTER 2018-03-14 15:51 | Outpatient (REF) | payer MEDICARE, OTHER, MEDICAID, SELFPAY ==
[2018-03-14 17:53] LABS: Abs Immature Grans 0.01 k/cumm (0.0-0.09); Absolute Basophil Count 0.02 k/cumm (0.0-0.2); Absolute Eosinophil Count 0.19 k/cumm (0.0-0.7); Absolute Lymphocyte Count 1.57 k/cumm (1.2-3.4); Absolute Neutrophil Count 3.61 k/cumm (1.2-6.7); Basophils % 0.3; Eosinophils % 3.3; HCT 39.6 % (40.0-50.0); HGB 12.5 g/dL (13.5-17.5); Immature Grans % 0.2; Lymphocytes % 27.1; Mean Corp. HGB Concentration 31.6 g/dL (32.0-36.0); Mean Corpuscular Hemoglobin 29.3 pg (27.0-33.0); Mean Platelet Volume 9.8 fL (8.0-11.0); Monocytes % 6.9; Neutrophils % 62.2; Platelet Count 210 x1000/uL (130-400); RBC 4.26 m/cumm (4.50-6.00)
[2018-03-14 18:05] LABS: ALT 20 U/L (12-78); AST 19 U/L (15-37); Albumin 2.8 g/dL (3.4-5.0); Alkaline Phosphatase 71 U/L (46-116); Anion Gap 7.3 mmol/L (3-11); BUN 12 mg/dL (7-18); Bilirubin, Total 1.1 mg/dL (0.2-1.0); CO2 29.7 mmol/L (21.0-32.0); CREATININE 0.48 mg/dL (0.70-1.30); Calcium 8.7 mg/dL (8.5-10.1); Chloride 105 mmol/L (98-107); Glucose 88 mg/dL (70-100); Potassium 4.3 mmol/L (3.5-5.1); Sodium 142 mmol/L (136-145); Total Protein 6.7 g/dL (6.4-8.2)
== END 2018-03-14 16:11 ==
LOC: LBN 15:51
PROVIDERS: PCP Family Medicine; Visit Provider Family Medicine
DX: J69.0 Pneumonitis due to inhalation of food and vomit (principal); J86.9 Pyothorax without fistula
CPT/HCPCS: 80053; 85025

== ENCOUNTER 2018-03-25 00:31 | Outpatient (CLI) | payer MEDICARE, OTHER, MEDICAID, SELFPAY ==
--- NOTE | 2018-03-25 14:30 | DI.CT_ITS ---
SYMPTOM/DIAGNOSIS: EMPYEMA, J86.9, PLEURAL EFFUSION, I26.99, ASPIRATION PNEUMONIA, J69.[address]: CT angiography was performed with multi slice acquisition and multi planar and 3D reconstruction. CT scan of the chest was performed according to the pulmonary embolus protocol. Comparison is 02/11/18. There is no evidence of a pulmonary embolus. The thoracic aorta is of normal caliber. No aneurysmal dilatation or dissection is present. Heart size is mildly enlarged. No evidence of right ventricular dysfunction is seen. No significant pericardial effusion is present. No significant thoracic adenopathy is present. No significant pleural effusion or pneumothorax is present. There is a small infiltrate seen in the left lung base. This may represent atelectasis or pneumonia. The lungs otherwise are clear. The tracheobronchial tree is unremarkable. There is a large hiatal hernia present. Degenerative changes are seen in the spine. IMPRESSION: No evidence of a pulmonary embolus, thoracic aortic aneurysm or dissection. Left basilar infiltrate which likely reflects atelectasis. Pneumonia cannot be excluded.
[2018-03-25] MEDS: Normal Saline Flush 10 ML SYR IVP (14:49)
[2018-03-25] MEDS: Omnipaque 350 MG/ML 100 ML BTL IJ (14:56)
== END 2018-03-25 00:51 ==
PROVIDERS: PCP Family Medicine; Visit Provider Family Medicine
DX: J86.9 Pyothorax without fistula (principal); J90 Pleural effusion, not elsewhere classified; R91.8 Other nonspecific abnormal finding of lung field; I51.7 Cardiomegaly; K44.9 Diaphragmatic hernia without obstruction or gangrene; I26.99 Other pulmonary embolism without acute cor pulmonale
CPT/HCPCS: 36415; 71275; 82805; 82565; J3490

== ENCOUNTER 2018-03-25 01:44 | Outpatient (CLI) | payer MEDICARE, OTHER, MEDICAID, SELFPAY ==
--- NOTE | 2018-03-25 11:30 | PFT_ITS ---
PULMONARY FUNCTION TEST REPORT Patient identification Jonathan Busch DATE OF 43 DATE OF SERVICE March 25, 2018 REQUESTING PROVIDER Essence Prater M.D. INTERPRETATION OF STUDY Spirometry in a seated position shows severe obstructive airways disease and likely there is a severe restrictive component. Spirometry in a supine position shows very similar results. Severe obstruction with likely severe restrictive component. Clinical correlation recommended. The patient is unable to carry out any other component of the testing because of his underlying muscular dystrophy and being bedbound. Tamy Bethea M.D. NARDA/sofia T-04/04/2018
[2018-03-25 13:30] LABS: BE 2.4 mmol/L (-3-3); HCO3 27 mmol/L (22-28); pCO2 39 mmHg (34-47); pH 7.44 (7.35-7.45); pO2 70 mmHg (83-108); sO2 96 % (94-98); tCO2 24 mmol/L (22-29)
[2018-03-25 13:32] LABS: FIO2 R/A %; Site Right Radial
== END 2018-03-25 02:04 ==
PROVIDERS: PCP Family Medicine; Visit Provider Family Medicine
DX: J98.4 Other disorders of lung (principal); J90 Pleural effusion, not elsewhere classified; J86.9 Pyothorax without fistula; I26.99 Other pulmonary embolism without acute cor pulmonale
CPT/HCPCS: 82805

== ENCOUNTER 2018-10-26 15:21 | Outpatient (REF) | payer MEDICARE, OTHER, MEDICAID, SELFPAY ==
[2018-10-26 15:49] LABS: Abs Immature Grans 0.01 k/cumm (0.0-0.09); Absolute Basophil Count 0.02 k/cumm (0.0-0.2); Absolute Eosinophil Count 0.17 k/cumm (0.0-0.7); Absolute Lymphocyte Count 1.44 k/cumm (1.2-3.4); Absolute Neutrophil Count 3.24 k/cumm (1.2-6.7); Basophils % 0.4; Eosinophils % 3.3; HCT 42.7 % (40.0-50.0); HGB 13.9 g/dL (13.5-17.5); Immature Grans % 0.2; Lymphocytes % 27.8; Mean Corp. HGB Concentration 32.6 g/dL (32.0-36.0); Mean Corpuscular Hemoglobin 31.5 pg (27.0-33.0); Mean Corpuscular Volume 96.8 fL (80-95); Mean Platelet Volume 9.6 fL (8.0-11.0); Monocytes % 5.8; Neutrophils % 62.5; Platelet Count 200 x1000/uL (130-400); RBC 4.41 m/cumm (4.50-6.00); RBC Distribution Width 13.7 % (11.8-14.1); White Blood Cell Count 5.18 k/cumm (4.4-10.8)
[2018-10-26 15:57] LABS: ALT 28 U/L (12-78); AST 18 U/L (15-37); Albumin 3.3 g/dL (3.4-5.0); Alkaline Phosphatase 73 U/L (46-116); Anion Gap 7.9 mmol/L (3-11); BUN 14 mg/dL (7-18); Bilirubin, Total 0.9 mg/dL (0.2-1.0); CO2 30.1 mmol/L (21.0-32.0); CREATININE 0.44 mg/dL (0.70-1.30); Calcium 8.6 mg/dL (8.5-10.1); Chloride 105 mmol/L (98-107); Glucose 97 mg/dL (70-100); Potassium 4.3 mmol/L (3.5-5.1); Sodium 143 mmol/L (136-145); Total Protein 6.4 g/dL (6.4-8.2)
== END 2018-10-26 15:41 ==
LOC: NCHCN 15:21
PROVIDERS: PCP Family Medicine; Visit Provider Family Medicine
DX: D64.9 Anemia, unspecified (principal); G71.11 Myotonic muscular dystrophy
CPT/HCPCS: 80053; 85025

== ENCOUNTER → 2022-05-27 08:07 | Outpatient (BNVA) | payer MEDICARE, OTHER, MEDICAID, SELFPAY | PROVIDERS: PCP Family Medicine; Referring Provider Family Medicine; Visit Provider Psychiatry & Neurology Neurology | DX: G71.09 Other specified muscular dystrophies (principal); H02.403 Unspecified ptosis of bilateral eyelids; R13.12 Dysphagia, oropharyngeal phase; I10 Essential (primary) hypertension | CPT/HCPCS: 99214 ==

== ENCOUNTER → 2022-11-25 08:40 | Outpatient (BNVA) | payer MEDICARE, OTHER, MEDICAID, SELFPAY | PROVIDERS: PCP Family Medicine; Referring Provider Family Medicine; Visit Provider Psychiatry & Neurology Neurology | DX: G71.09 Other specified muscular dystrophies (principal); H02.403 Unspecified ptosis of bilateral eyelids; R13.12 Dysphagia, oropharyngeal phase; J44.9 Chronic obstructive pulmonary disease, unspecified | CPT/HCPCS: 99443 ==

== ENCOUNTER → 2022-12-25 14:32 | Outpatient (BNVA) | payer MEDICARE, OTHER, MEDICAID, SELFPAY | PROVIDERS: PCP Family Medicine; Referring Provider Family Medicine; Visit Provider Student in an Organized Health Care Education/Training Program | DX: G71.00 Muscular dystrophy, unspecified (principal); G47.33 Obstructive sleep apnea (adult) (pediatric); T17.908A Unspecified foreign body in respiratory tract, part unspecified causing other injury, initial encounter | CPT/HCPCS: 99443 ==

== ENCOUNTER → 2023-06-16 06:27 | Outpatient (BNVA) | payer MEDICARE, OTHER, MEDICAID, SELFPAY | PROVIDERS: PCP Family Medicine; Referring Provider Family Medicine; Visit Provider Psychiatry & Neurology Neurology ==

== ENCOUNTER → 2023-09-28 08:31 | Outpatient (BNVA) | payer MEDICARE, OTHER, MEDICAID, SELFPAY | PROVIDERS: PCP Family Medicine; Referring Provider Family Medicine; Visit Provider Psychiatry & Neurology Neurology | DX: G71.09 Other specified muscular dystrophies (principal); H02.403 Unspecified ptosis of bilateral eyelids; R13.12 Dysphagia, oropharyngeal phase | CPT/HCPCS: 99443 ==

== ENCOUNTER → 2023-12-29 08:05 | Outpatient (BNVA) | payer MEDICARE, OTHER, MEDICAID, SELFPAY | PROVIDERS: PCP Family Medicine; Referring Provider Family Medicine; Visit Provider Psychiatry & Neurology Neurology | DX: G71.09 Other specified muscular dystrophies (principal); H02.403 Unspecified ptosis of bilateral eyelids | CPT/HCPCS: 99214 ==

== ENCOUNTER → 2024-04-04 07:36 | Outpatient (BNVA) | payer MEDICARE, OTHER, MEDICAID, SELFPAY | PROVIDERS: PCP Family Medicine; Referring Provider Family Medicine; Visit Provider Psychiatry & Neurology Neurology | DX: R13.12 Dysphagia, oropharyngeal phase (principal); G71.09 Other specified muscular dystrophies | CPT/HCPCS: 99214 ==

== ENCOUNTER 2024-04-28 15:13 | Outpatient (REF) | payer MEDICARE, OTHER, MEDICAID, SELFPAY ==
[2024-04-28 15:22] LABS: HCT 39.8 % (40.0-50.0); HGB 12.7 g/dL (13.5-17.5); MCH 31.2 pg (27.0-33.0); MCHC 31.9 % (32.0-36.0); MCV 98 fL (80-95); MPV 9.3 fL (8.0-11.0); Platelet Count 164 10^3/uL (130-400); RBC 4.07 10^6/uL (4.36-5.78); RDW 13.6 % (11.8-14.1); RDW-SD 49.2 fL; WBC 5.43 10^3/uL (4.4-10.8)
[2024-04-28 16:00] LABS: Hemoglobin A1C 5.1 % (<5.7)
[2024-04-28 16:01] LABS: ALT 14 U/L (16-63); AST 15 U/L (15-37); Albumin 3.4 g/dL (3.4-5.0); Alkaline Phosphatase 79 U/L (46-116); BUN 14 mg/dL (7-18); Bilirubin, Total 1.04 mg/dL (0.2-1.0); CREATININE 0.3 mg/dL (0.70-1.30); Calcium 9.2 mg/dL (8.5-10.1); Chloride 107 mmol/L (98-107); Estimated GFR 120.31 (mL/min/1.73m2); Glucose 90 mg/dL (74-106); Potassium 4.5 mmol/L (3.5-5.1); Sodium 142 mmol/L (136-145)
== END 2024-04-28 15:14 | disposition home or self-care (01) ==
LOC: NCHCN 15:13
PROVIDERS: PCP Family Medicine; Visit Provider Family Medicine
DX: Z00.00 Encounter for general adult medical examination without abnormal findings (principal); I10 Essential (primary) hypertension
CPT/HCPCS: 80053; 85027; 83036

== ENCOUNTER 2024-07-07 11:33 | Outpatient (RCR) | payer MEDICARE, OTHER, MEDICAID, SELFPAY ==
--- NOTE | 2024-07-13 10:15 | HOLT_ITS ---
Date of service: 07/13/24 Time of Service: 10:15 Holter Monitor Report Referring Provider:: Essence Prater Indications:: Palpitations Holter Monitor Note: This is a 48-hour Holter monitor. Predominant rhythm was sinus with an average heart rate of 58. Minimum was 33, maximum 120. There are moderately frequent ventricular ectopic beats comprising 5% of total. There were rare couplets. There was 1 triplet. There were moderately frequent atrial premature beats, also comprising 5% of total. Multiple brief runs of premature atrial contractions occurred. These were generally 8-10 beats in duration. 1 atrial premature beats were also n oted. There was no atrial fibrillation, no high-grade AV block, no pauses greater than 3 seconds. No symptoms were reported
== END 2024-08-05 23:59 | disposition home or self-care (01) ==
LOC: CARDOPNVT 11:33
PROVIDERS: PCP Family Medicine; Visit Provider Internal Medicine Cardiovascular Disease
DX: R00.1 Bradycardia, unspecified (principal); I49.1 Atrial premature depolarization
CPT/HCPCS: 93227; 93225; 93226

== ENCOUNTER → 2024-10-11 09:24 | Outpatient (BNVA) | payer MEDICARE, OTHER, MEDICAID, SELFPAY | PROVIDERS: PCP Family Medicine; Referring Provider Family Medicine; Visit Provider Psychiatry & Neurology Neurology | DX: G71.09 Other specified muscular dystrophies (principal); R13.12 Dysphagia, oropharyngeal phase; H02.403 Unspecified ptosis of bilateral eyelids | CPT/HCPCS: 99214 ==

== ENCOUNTER → 2024-11-09 13:50 | Outpatient (BNVA) | payer MEDICARE, OTHER, MEDICAID, SELFPAY | PROVIDERS: PCP Family Medicine; Referring Provider Family Medicine; Visit Provider Physician Assistant Surgical | DX: G71.09 Other specified muscular dystrophies (principal); G47.33 Obstructive sleep apnea (adult) (pediatric); T17.908A Unspecified foreign body in respiratory tract, part unspecified causing other injury, initial encounter; J45.909 Unspecified asthma, uncomplicated | CPT/HCPCS: 99214 ==

== ENCOUNTER → 2025-02-08 14:32 | Outpatient (BNVA) | payer MEDICARE, OTHER, MEDICAID, SELFPAY | PROVIDERS: PCP Family Medicine; Referring Provider Family Medicine; Visit Provider Physician Assistant Surgical | DX: G71.09 Other specified muscular dystrophies (principal); J45.909 Unspecified asthma, uncomplicated; G47.33 Obstructive sleep apnea (adult) (pediatric); T17.908A Unspecified foreign body in respiratory tract, part unspecified causing other injury, initial encounter; Z87.891 Personal history of nicotine dependence | CPT/HCPCS: 99214 ==

== ENCOUNTER 2025-03-04 13:44 | Outpatient (REF) | payer MEDICARE, OTHER, MEDICAID, SELFPAY ==
[2025-03-04 13:58] LABS: HCT 39.4 % (40.0-50.0); HGB 12.5 g/dL (13.5-17.5); MCH 29.9 pg (27.0-33.0); MCHC 31.7 % (32.0-36.0); MCV 94 fL (80-95); MPV 9.9 fL (8.0-11.0); Platelet Count 175 10^3/uL (130-400); RBC 4.18 10^6/uL (4.36-5.78); RDW 14.5 % (11.8-14.1); RDW-SD 50.2 fL; WBC 4.14 10^3/uL (4.4-10.8)
[2025-03-04 14:12] LABS: ALT 17 U/L (10-49); AST 20 U/L (<34); Albumin 3.9 g/dL (3.2-5.0); Alkaline Phosphatase 73 U/L (46-116); Anion Gap 4.7 mmol/L (3-11); BUN 16 mg/dL (9-23); Bilirubin, Total 1.8 mg/dL (0.2-1.2); CO2 30.3 mmol/L (20.0-31.0); Calcium 9.0 mg/dL (8.3-10.6); Chloride 107 mmol/L (98-107); Glucose 82 mg/dL (74-106); Magnesium 2.0 mg/dL (1.6-2.6); Potassium 4.4 mmol/L (3.5-5.1); Sodium 142 mmol/L (136-145); Total Protein 6.4 g/dL (5.7-8.2)
[2025-03-04 14:15] LABS: Ferritin 43 ng/mL (11-307)
== END 2025-03-04 13:45 | disposition home or self-care (01) ==
LOC: NCHCN 13:44
PROVIDERS: PCP Family Medicine; Visit Provider Family Medicine
DX: I48.91 Unspecified atrial fibrillation (principal); G71.00 Muscular dystrophy, unspecified; J43.9 Emphysema, unspecified; I10 Essential (primary) hypertension; D64.9 Anemia, unspecified
CPT/HCPCS: 80053; 85027; 82728; 83735